=== PATIENT | male | born 1955 | race Caucasian/White ===

== ENCOUNTER 2017-01-08 12:53 | Emergency (ER) | payer OTHER, MEDICARE ==
[~2017-01-08 12:53] MED LIST: CENTRUM TAB1 TAB PO; CITRACAL PO; FLOMAX4 PO; MYRBETRIQ50 MG PO; NEUR600 PO; RILUTEK50 MG PO; SYN.15 PO; VITAMIN D1000 UNI1 PO; ZANAFLEX 4 MG TA4 MG PO
[2017-01-08 13:23] LABS: BASOPHILS 0.1 %; BASOPHILS ABSOLUTE 0.01 10/3/uL (0.0-0.16); EOSINOPHILS 0.8 %; EOSINOPHILS ABSOLUTE 0.09 10/3/uL (0.0-0.53); HEMATOCRIT 36.3 % (40.0-51.0); HEMOGLOBIN 12.1 g/dL (13.6-17.8); IMMATURE GRANULOCYTES 0.2 %; IMMATURE GRANULOCYTES ABSOLUTE 0.02 10/3/uL (0.0-0.11); LYMPHOCYTES 9.8 %; LYMPHOCYTES ABSOLUTE 1.08 10/3/uL (0.67-4.30); MANUAL DIFF NO %; MEAN CORPUS HGB CONC 33.3 g/dL (32.0-36.0); MEAN CORPUSCULAR HEMOGLOB 31.5 pg (26.0-34.0); MEAN CORPUSCULAR VOLUME 94.5 fL (80-100); MEAN PLATELET VOLUME 11.3 fL (9.2-13.0); MONOCYTES 7.8 %; MONOCYTES ABSOLUTE 0.86 10/3/uL (0.21-1.20); NEUTROPHILS 81.3 %; NEUTROPHILS ABSOLUTE 9.01 10/3/uL (2.02-8.40); PLATELET COUNT 95 10/3/uL (150-400); RBC DISTRIBUTION WIDTH 13.9 % (12.0-16.0); RED CELL COUNT 3.84 10/6/uL (4.7-6.1); WHITE BLOOD CELLS 11.1 10/3/uL (4.5-10.5)
[2017-01-08 13:37] LABS: A/G RATIO 0.9 (0.7-1.9); ALBUMIN 3.4 G/DL (3.5-5.0); ALKALINE PHOSPHATASE 69 U/L (45-117); BUN (BLOOD UREA NITROGEN) 17 MG/DL (6-23); CALCIUM, SERUM 9.9 MG/DL (8.5-10.4); CHLORIDE, SERUM 98 MMOL/L (96-112); CO2 (CARBON DIOXIDE) 26 MMOL/L (24-34); CREATININE 0.65 MG/DL (0.70-1.30); GFR AFRICAN AMERICAN 121 ML/MIN (>=60); GFR NON AFRICAN AMERICAN 104 ML/MIN (>=60); GLUCOSE, SERUM 93 MG/DL (60-99); POTASSIUM, SERUM 4.3 MMOL/L (3.5-5.3); SGOT(AST) 16 U/L (5-40); SGPT(ALT) 29 U/L (5-65); TOTAL BILIRUBIN 0.7 MG/DL (0-1.2); TOTAL PROTEIN 7.4 G/DL (6.0-8.5)
[2017-01-08 13:38] LABS: SODIUM, SERUM 133 MMOL/L (135-148)
[2017-01-08 18:06] LABS: ASCORBIC ACID (UR NOT ORDER) NEG (NEG); BILIRUBIN, URINE NEGATIVE (NEG); ER URINALYSIS TAT 0 Hrs 15 Mins; KETONE, URINE 20 MG/DL (NEG); LEUKOCYTE ESTERASE(NOT OR LARGE (NEG); NITRITE (URINE) NEG (NEG); WBC (NOT ORDERED) (RFLEX) 112 (0-5)
[2017-01-08] MEDS ORDERED: ZANAFLEX 4 MG TA4 MG PO (18:58)
[2017-01-08] MEDS ORDERED: FLOMAX4 PO (18:58)
[2017-01-08] MEDS ORDERED: RILUTEK50 MG PO (18:58)
[2017-01-08] MEDS ORDERED: LEVOTHYROXIN112 MCG PO (18:58)
[2017-01-08] MEDS ORDERED: MYRBETRIQ50 MG PO (18:58)
[2017-01-08] MEDS ORDERED: REG5 PO (18:59)
[2017-01-08] MEDS ORDERED: NEUR600 PO (18:59)
[2017-01-08] MEDS ORDERED: DSS PO (19:00)
[2017-01-08] MEDS ORDERED: ARNUITY ELLIP200 MCG INH (19:00)
[2017-01-08] MEDS ORDERED: REG PO (19:00)
[2017-01-08] MEDS ORDERED: VITAMIN D31000 UNIT PO (19:00)
[2017-01-08] MEDS ORDERED: [UNRECOGNIZED DRUG - OTHER] PO (19:01)
[2017-01-08] MEDS ORDERED: CENTRUM PO (19:01)
[2017-01-08] MEDS ORDERED: BIST PO (19:05)
[2017-01-11] MEDS ORDERED: MSIMMR15 PO (14:34)
[2017-01-11] MEDS ORDERED: [UNRECOGNIZED DRUG - OTHER] (14:36)
[2017-01-11] MEDS ORDERED: ATV1 PO (14:37)
[2017-01-11] MEDS ORDERED: FENESIN IR400 MG PO (14:58)
[2017-01-11] MEDS ORDERED: VIRTUSSIN PO (15:00)
[2017-01-11] MEDS ORDERED: ZANTAC 75 PO (15:02)
== END 2017-01-08 21:00 | disposition home or self-care (01) ==
LOC: ER 12:53
PROVIDERS: Emergency Medicine
DX: N39.0 Urinary tract infection, site not specified (principal); D64.9 Anemia, unspecified; K21.9 Gastro-esophageal reflux disease without esophagitis; Z79.899 Other long term (current) drug therapy
CPT/HCPCS: 71010; 74176; 80053; 81001; 83605; 83690; 85025; 87040; 87077; 87086; 87186; 96374; 96375; 99284; J2405; J3475